=== PATIENT | female | born 1995 | race Caucasian/White ===

== ENCOUNTER → 2019-06-11 | Outpatient (CLI) | payer OTHER ==
[~2019-06-11] MED LIST: BACTRIM DS TAB1 EACH PO; CEFDINIR PO; CELEXA 10 MG TA10 M1 PO; LEVOTHYROXINE0.2 M1 PO; PREDNISONE 20 M20 M1 PO; PYRIDIUM200 MG PO
== END ==
LOC: M.RAD 12:31
DX: M79.672 Pain in left foot (principal)